=== PATIENT | male | born 1950 | race Two or more races ===

== ENCOUNTER → 2020-02-12 | Outpatient (CLI) | payer MEDICARE ==
[~2020-02-12] MED LIST: LATA2.5D2 LEFTEYE; METF500T16 PO; OXYC-325 PO; SIMV20TA18 PO
[2020-02-12 13:13] LABS: BASO % 0 % (0-3); EOS # 0.3 x10^3/uL (0.0-0.7); EOS % 4 % (0-3); HEMATOCRIT 41.4 % (39.0-53.0); LYMPH # 1.7 x10^3/uL (1.0-4.8); LYMPH % 20 % (24-48); MEAN CORPUSCULAR HEMOGLOBIN 28 pg (25-35); MEAN CORPUSCULAR HGB CONC 34 g/dL (31-37); MEAN CORPUSCULAR VOLUME 84 fL (79-100); MONO % 11 % (0-9); NEUT # 5.5 x10^3/uL (1.8-7.7); NEUT % 65 % (31-73); PLATELET COUNT 309 x10^3/uL (140-400); RED BLOOD COUNT 4.92 x10^6/uL (4.30-5.70); RED CELL DISTRIBUTION WIDTH 13.9 % (11.5-14.5); WHITE BLOOD COUNT 8.4 x10^3/uL (4.0-11.0)
[2020-02-13 01:08] LABS: HEMOGLOBIN A1C 5.7 % (4.8-5.6)
== END ==
LOC: SURGPAT 12:28
PROVIDERS: ATTEND Surgery
DX: Z01.818 Encounter for other preprocedural examination (principal); Z11.59 Encounter for screening for other viral diseases; K40.90 Unilateral inguinal hernia, without obstruction or gangrene, not specified as recurrent
CPT/HCPCS: 36415; 83036; 85025; U0003

== ENCOUNTER 2020-02-16 07:30 | Day surgery (SDC) | payer MEDICARE ==
[~2020-02-16] VITALS: Ht 172.7 cm; Wt 71.0 kg
[~2020-02-16 07:30] MED LIST changes: +ACETAMINOPHEN 500 MG TABLET PO ONE; +HYDROmorphone 2 MG/ML VIAL IV PRN; +IV RINGERS,LACTATED 1000ML 1,000 ML IV SCH; +MORPHINE SULFATE 2 MG/ML VIAL. IV PRN; +ONDANSETRON PF 4 MG/2 ML VIAL. IV PRN; -OXYC-325 PO; +PROCHLORPERAZINE 10 MG/2 ML VIAL. IV PRN; +ceFAZolin SODIUM IV Push 1 GM VIAL. IVP ONE; +fentaNYL PF VIAL 100 MCG/2 ML VIAL IV PRN
[2020-02-16] MEDS ORDERED: INSULIN LISPRO 100 UNIT/ML 3ML VIAL for OP,RR ONLY. SQ PRN (07:45)
[2020-02-16] MEDS ORDERED: LIDOCAINE 2% PF 5 ML VIAL. ONE (08:10)
[2020-02-16] MEDS ORDERED: PROPOFOL 10 MG/ML (20ML) VIAL. IV ONE (08:10)
[2020-02-16] MEDS ORDERED: fentaNYL PF VIAL 250 MCG/5 ML VIAL ONE (08:11)
[2020-02-16] MEDS ORDERED: ROCURONIUM 50 MG/5 ML VIAL. ONE (08:11)
[2020-02-16] MEDS ORDERED: MINERAL OIL for SURGERY 10 ML VIAL. MC ONE (08:28)
[2020-02-16] MEDS ORDERED: BUPIVACAINE-EPI 0.25%-1:200000 MPF 30 ML VIAL. ONE (08:29)
[2020-02-16] MEDS ORDERED: DEXAMETHASONE SOD PHOS 4 MG/ML VIAL ONE (09:06)
[2020-02-16] MEDS ORDERED: ONDANSETRON PF 4 MG/2 ML VIAL. ONE (09:06)
[2020-02-16] MEDS ORDERED: SEVOFLURANE 31 TO 60 MINUTES. IH ONE (09:13)
[2020-02-16] MEDS ORDERED: NEOSTIGMINE METHYLSULFATE 5 MG/5 ML SYRINGE. ONE (09:31)
[2020-02-16] MEDS ORDERED: GLYCOPYRROLATE 1 MG/5 ML VIAL. ONE (09:31)
--- NOTE | 2020-02-16 09:54 | PDOC4 ---
Operative Note Operative Note Date: 2019 at 09 51 Preoperative diagnosis: Left inguinal hernia Postoperative diagnosis: Same Procedure: Robotic assisted laparoscopic left inguinal hernia repair with mesh Surgeon: Lane Specimen: None Dictation: Patient is 69-year-old male whose had a painful bulge in his left groin. Procedure of robotic assisted laparoscopic left inguinal hernia repair with mesh was explained to the patient detail was benefits were also discussed occluding bleeding infection injury to intra-abdominal contents possible necessitating further open operations alternatives to this procedure also discussed with the patient who seemed to understand and gave both verbal and written consent to have the procedure performed. Patient was taken to the operating room placed in the supine position general anesthesia was initiated once patient was sleeping intubated placed in low lithotomy position and his abdomen was prepped and draped usual sterile fashion using ChloraPrep. An area just above the umbilicus injected with quarter percent Marcaine with epinephrine incision was made 11 blade scalpel and a varies needle was placed within the abdomen creating pneumoperitoneum once this complete a millimeter da Luigi port was placed and the camera was placed within the abdomen which was inspected was noted that he had a left inguinal hernia with incarcerated colon within the hernia defect. A 8 mm da Luigi port was placed in the left midabdomen and an 8 mm da Luigi port was placed in the right midabdomen. The da Luigi robot was brought into docked all port sites surgeon went to the robotic console using a grasper and Endo Cierra scissors the hernia on the left side was reduced as well as its contents a incision was made in the peritoneum and a window was propagated inferiorly reducing all the hernia sac out of the hernia defect. A large Bard 3D max mesh for the left groin was placed within the abdomen this was placed over the hernia defect and using a 20V lock suture absorbable was used to close the peritoneum over the mesh. Needle was removed from the abdomen the da Luigi robot was undocked from all port sites the pneumoperitoneum was reduced all ports were removed the skin incisions were all closed with 4 subcuticular Mo nocryl Mastisol Steri-Strips and island dressings were applied. Patient was awakened and extubated the operating room taken to recovery in stable condition all sponge instrument needle counts listed as correct estimated blood loss 5 mL ERIC GAMBOA MD Feb 16, 2020 09:54
--- NOTE | 2020-02-16 09:55 | DISCH ---
DISCHARGE INSTRUCTIONS Condition on Discharge Condition on Discharge: Stable Activity After Discharge Activity Instructions for Disc: Avoid exertion Other activity instructions: No lifting more than 20 pounds for 2 weeks Diet after Discharge Diet after Discharge: Regular Wound Incision Care Other wound/incision instructi: May shower in 24 hours Contacting the after DC Call your doctor for: If your condition worsens Follow-Up Follow up with: Dr. Gamboa in 2 weeks ERIC GAMBOA MD Feb 16, 2020 09:55
[2020-02-16] MEDS ORDERED: oxyCODONE/APAP 5/325 1 TAB TABLET PO ONE ×2 (10:15)
[2020-02-16] MEDS ORDERED: OXYC-325 PO (10:19)
[2020-02-16 10:45] VITALS: BP 154/81
== END 2020-02-16 11:49 | disposition home or self-care (01) ==
LOC: SURG 07:30 → EDUNIT# 10:00 → SURG 11:49
PROVIDERS: ATTEND Surgery
DX: K40.90 Unilateral inguinal hernia, without obstruction or gangrene, not specified as recurrent (principal); E11.9 Type 2 diabetes mellitus without complications; E78.00 Pure hypercholesterolemia, unspecified; Z79.84 Long term (current) use of oral hypoglycemic drugs; Z79.899 Other long term (current) drug therapy
CPT/HCPCS: 49650; 82962; A7015; C1781; J0690; J1100; J2405; J2704; J2710; J3010; J3490

== ENCOUNTER → 2020-07-10 | Outpatient (CLI) | payer MEDICARE ==
[~2020-07-10] MED LIST changes: -ACETAMINOPHEN 500 MG TABLET PO ONE; -HYDROmorphone 2 MG/ML VIAL IV PRN; -IV RINGERS,LACTATED 1000ML 1,000 ML IV SCH; -MORPHINE SULFATE 2 MG/ML VIAL. IV PRN; -ONDANSETRON PF 4 MG/2 ML VIAL. IV PRN; +OXYC-325 PO; -PROCHLORPERAZINE 10 MG/2 ML VIAL. IV PRN; -ceFAZolin SODIUM IV Push 1 GM VIAL. IVP ONE; -fentaNYL PF VIAL 100 MCG/2 ML VIAL IV PRN
--- NOTE | 2020-07-10 14:48 | KCIC ---
MRI of the lumbar spine without contrast 07/10/2020 CLINICAL HISTORY: Low back pain which radiates down the left leg for 6 weeks. TECHNIQUE: Unenhanced T1-weighted and T2-weighted sagittal and axial and inversion recovery sagittal images of the lumbar spine were obtained. FINDINGS: Mild S-shaped curvature of the thoracolumbar spine is seen. Degenerative signal changes are seen involving all the disks of the lumbar spine. Degenerative signal changes are seen within the ma rrow surrounding these discs. The conus medullaris is normal morphology, position, and signal charact eristics. A 1 cm rounded high signal intensity lesion is seen involving the midpole of the left kidne y on the T2-weighted images. This likely represents a cyst. No further imaging evaluation is recommen ded. At the L1-2 disc space there is a minimal generalized disc bulge. Degenerative changes are seen invol ving the facet joints bilaterally. These findings do not result in significant central spinal canal o r neural foraminal stenosis. At the L2-3 disc space there is a mild to moderate generalized disc bulge. This is eccentric to the l eft. Superimposed on this disc bulge is a left lateral focal disc herniation which extrudes slightly inferiorly. This measures 5 mm in AP diameter. Degenerative changes are seen involving the facet join ts bilaterally. There is mild ligamentum flavum hypertrophy bilaterally. These findings when combined do not result in significant central spinal canal stenosis. Mild left neural foraminal stenosis is s een. The right neural foramen is patent. At the L3-4 disc space there is a mild to moderate generalized disc bulge. This is eccentric to the r ight. Degenerative changes are seen involving the facet joints bilaterally. There is mild ligament fl avum hypertrophy bilaterally. These findings when combined do not result in significant central spina l canal or neural foraminal stenosis. At the L4-5 disc space there is a mild generalized disc bulge. Superimposed on this disc bulge is a r ight lateral focal disc protrusion. This measures 3 mm in AP diameter. Degenerative changes are seen involving the facet joints bilaterally. There is mild ligament flavum hypertrophy bilaterally. These findings when combined do not result in significant central spinal canal or neural foraminal stenosis . At the L5-S1 disc space there is a mild to moderate generalized disc bulge. Degenerative changes are seen involving the facet joints bilaterally. These findings do not result in significant central spin al canal or neural foraminal stenosis. IMPRESSION: The changes of degenerative disc disease are seen throughout the lumbar spine. These find ings do not result in significant central spinal canal stenosis at any level. Mild left neural forami nal stenosis is seen at L2-3 secondary to a left lateral focal disc herniation. Electronically signed by: Deven Laird MD (07/10/2020 2:45 PM) [id number]
== END ==
LOC: KCIC MRI 12:51
PROVIDERS: ATTEND Family Medicine
DX: M51.36 Other intervertebral disc degeneration, lumbar region (principal); M48.061 Spinal stenosis, lumbar region without neurogenic claudication; M51.27 Other intervertebral disc displacement, lumbosacral region; M47.817 Spondylosis without myelopathy or radiculopathy, lumbosacral region; M43.8X5 Other specified deforming dorsopathies, thoracolumbar region; M89.38 Hypertrophy of bone, other site
CPT/HCPCS: 72148

== ENCOUNTER → 2020-08-06 | Outpatient (CLI) | payer MEDICARE ==
[~2020-08-06] MED LIST changes: +ATOR40TA59 PO; +cbd oil
--- NOTE | 2020-08-06 15:07 | PDOC1 ---
INITIAL PAIN CONSULT DATE OF SERVICE: DOS: DATE: 08/06/20 TIME: 15:00 CHIEF COMPLAINT: Chief Complaint: Low back and bilateral lower extremity pain HISTORY OF PRESENT ILLNESS: 70-year-old male presents history of pain low back bilateral lower extremities left greater than right for about 5 months. Patient reports no specific injury or accident that he is aware but is getting worse over time in the left greater than right lower extremity mostly in the posterior gluteus posterior lateral thigh lateral anterior thigh anterior medial thigh on the right into the medial lower leg bilaterally much worse on the left than the right. Patient reports constant is throbbing scribes as tingling and change during the day worse with activity standing walking changing positions aching in the low back patient reports is worse with walking and standing changing positions getting up from a seated position also wakes him from sleep occasionally but not every night. Patient has been doing physical therapy which has been helpful as well as doing exercise daily both of these since 1 month ago. Patient taking gabapentin as well as an gmcz-vsn-lbspevy medicine for restless legs neither 1 of which does decrease the pain significantly. Patient rates his disability rating 0-10 10 being the worst is a 6 with him home responsibilities recreation 5 with social activity occupation sexual behavior 6 with self-care and 7 with life support ac tivities. Patient did have MRI scan lumbar spine showing multiple levels of degenerative disc disease with a L2-3 disc bulge and lateral focal disc herniation extruding slightly inferiorly eccentric to the left, L3-4 shows moderate generalized disc bulge eccentric to the right with mild ligament flavum hypertrophy bilaterally L4-5 shows degenerative changes and disc bulges with so perimposed right lateral focal disc protrusion. Patient reports no loss of motor function lower extremities but significant fatigability of the left leg with walking and standing. PAST MEDICAL HISTORY: PMH: Type 2 diabetes, arthritis, glaucoma PREVIOUS SURGERIES: Past Surgical Hx: Left inguinal hernia repair January 2020 CURRENT MEDICATIONS: Current Meds: Active Scripts Medications Dose Route/Sig Max Daily Dose Days Date Category [cbd oil] PRN 08/06/20 Reported Atorvastatin Calcium 40 Mg Tablet 1 Tab PO DAILY 08/06/20 Reported Xalatan (Latanoprost) 2.5 Ml Drops 1 Drop LEFTEYE DAILY 02/12/20 Reported Metformin Hcl 500 Mg Tablet 500 Mg PO DAILY 02/12/20 Reported ALLERGIES; Allergies: Coded Allergies: No Known Drug Allergies (Unverified , 02/16/20) FAMILY HISTORY: Family Hx: Heart disease, diabetes SOCIAL HISTORY: Social Hx: Patient is under alcohol does not smoke or use any illegal illicit recreational drugs is lives with his spouse lives locally in [facility] REVIEW OF SYSTEMS: ROS: Positive for those items mentioned in history of present illness, all systems are reviewed, otherwise negative, is complete full and well-documented on patient's chart. PHYSICAL EXAM: VS: Blood pressure is 132/89 pulse 79 respirations 16 temperature is 98.2 F height is 5 feet 8 inches weight is 153 pounds PE: PHYSICAL EXAMINATION: GENERAL: The patient is awake, alert, oriented, appropriate, very pleasant demeanor HEENT: Shows normocephalic, atraumatic. Extraocular movements are intact and symmetrical. Patient wearing eyeglasses oral cavity: Mucous membranes moist and pink. Dentition is intact. NECK: Shows anterior throat supple without palpable lymphadenopathy noted. Swallow reflex symmetrical. CHEST: Shows normal on inspection. Breath sounds are clear bilaterally, no rales rhonchi wheezes auscultated. HEART: Shows S1, S2 clear. No murmurs auscultated. ABDOMEN: Soft, nontender, nondistended, obese. No palpable organomegaly is not ed. No rebound or guarding demonstrated. BACK: Shows spine grossly in the midline. Normal-appearing cervical lordotic curvature. There is slightly increased thoracic kyphosis, some minor flattening of the lumbar lordotic curvature. Lumbar paraspinous muscles show symmetrical on inspection, on palpation shows some moderate tenderness diffusely throughout the upper, middle and lower distribution of the paraspinous muscles bilaterally and also into the lower thoracic paraspinous musculature, firm and tender, but without specific trigger points, without radiation of pain. The patient has good rotational motion of the lumbar spine, both laterally as well as extension and flexion without significant difficulty. No tenderness over the spinous processes, sacrum or sacroiliac regions. EXTREMITIES: Lower extremities show deep tendon reflexes 2+ in the patellar and tendo calcaneus tendons. Motor exam is 5 on a scale of 5 with right dorsiflexion, extension, quadriceps and hamstring flexion and 4/5 on the left. Peripheral pulses are 1+ posterior tibial. No peripheral edema is noted bilaterally. Lower extremities are warm and dry to touch, equal in color and appearance. Straight leg raise noted to be negative on the right, left side is positive at approximately 35 degrees decreased with knee flexion. Gaenslen's and Craig's maneuvers are negative bilaterally. The patient is able to stand, stand on his toes without significant difficulty or loss of balance, walks with a normal-appearing gait not appear to favor the right or left lower extremity significantly. SKIN: Shows warm and dry, good turgor. No edema. No sores, rashes or bruising throughout. IMPRESSION: Impression: 70-year-old male with 5-month history increasing pain low back left lower extremity greater than right in a radicular fashion Lumbar spine MRI scan as noted Arthritis Type 2 diabetes Plan: Options discussed with the patient cleared except medical management physical therapies and interventional techniques. Patient would like to pursue interventional techniques. We discussed a lumbar epidural steroid injection using description as well as anatomical models to describe the procedure. Risks were discussed including but not limited to: Bleeding, infection, possibility of epidural hematoma and subsequent neurological compromise, dural puncture, headaches, spinal cord and/or nerve damage, side effects of steroid medication, and poor results regarding pain control. Patient understands and wished to proceed. Patient will return to clinic in approximate 2 is for follow-up, was counseled as return appointment activity level and side effects to be aware of. Procedure is lumbar epidural steroid injection under local anesthetic using sterile prep and drape at the L3-4 level using C-arm fluoroscopic guidance in both AP and lateral views medications injected is 120 mg Depo-Medrol + 10 mL preservative-free normal saline and 2 mL contrast- condition at discharge is stable patient tolerated procedure well had no complications. GOLDY KIM MD Aug 06, 2020 15:07
--- NOTE | 2020-08-06 15:08 | PDOC4 ---
PROCEDURE Procedure Patient was consented for lumbar epidural steroid injection. Risks were dis cussed including but not limited to: Bleeding, infection, possibility of epidural hematoma and subsequent neurological compromise, dural puncture, headaches, spinal cord and/or nerve damage, side effects of steroid medication, and poor results regarding pain control. Patient understands and wished to proceed. Procedure is lumbar epidural steroid injection under local anesthetic using sterile prep and drape at the L3-4 level using C-arm fluoroscopic guidance in both AP and lateral views medications injected is 120 mg Depo-Medrol + 10 mL preservative-free normal saline and 2 mL contrast- condition at discharge is stable patient tolerated procedure well and had no complications. GOLDY KIM MD Aug 06, 2020 15:08
== END | disposition home or self-care (01) ==
LOC: PNCL 13:12
PROVIDERS: ATTEND Anesthesiology
DX: M54.5 Low back pain (principal); M79.605 Pain in left leg; M79.604 Pain in right leg; M19.90 Unspecified osteoarthritis, unspecified site; E11.9 Type 2 diabetes mellitus without complications; E78.00 Pure hypercholesterolemia, unspecified; Z87.891 Personal history of nicotine dependence; Z79.899 Other long term (current) drug therapy; Z98.890 Other specified postprocedural states; Z82.49 Family history of ischemic heart disease and other diseases of the circulatory system; Z83.3 Family history of diabetes mellitus
CPT/HCPCS: 62323

== ENCOUNTER → 2020-08-20 | Outpatient (CLI) | payer MEDICARE ==
--- NOTE | 2020-08-20 13:14 | PDOC ---
Progress Note - Pain Clinic Date of Service: DOS: DATE: 08/20/20 TIME: 13:11 Diagnosis: Dx: Lumbar radiculopathy with lumbar degenerative disease and lumbar herniated disc History or Present Illness: HPI: 70-year-old male returns for follow-up status post lumbar epidural steroid action x1. Patient reports about 50% improvement overall still some pain in the low back and left lower extremity but much better than it was patient reports only some tingling in the leg now he has been increasing his activity to greater ease and comfort walking greater distances doing household activities travel with greater ease these as well patient reports he is sleeping better at night generally does not awaken him from sleep. Patient reports about 2 weeks ago however he fell in some ice and hurt his ribs on his left side this is been causing him to lose sleep at night because of the back and the lower extremity. Patient reports otherwise doing much better rates his pain as a 8 on a scale of 10 at its worst 7 at least 7 on average and this is because of his ribs not his low back and leg. Patient scribes the and leg discomfort is tingling now with much less aching. Patient reports no new motor or sensory deficits no new bowel or bladder incontinence or other complaints. Physical Exam: VS: Pressure is 114/78 pulse 84 respirations 20 temperature 98.5 F weight 152 pounds PE: PHYSICAL EXAMINATION: GENERAL: The patient is awake, alert, oriented, appropriate, very pleasant demeanor HEENT: Shows normocephalic, atraumatic. Extraocular movements are intact and symmetrical. NECK: Shows anterior throat supple without palpable lymphadenopathy noted. ABDOMEN: Soft, nontender, nondistended. No palpable organomegaly is noted. No rebound or guarding demonstrated. BACK: Shows spine grossly in the midline. Normal-appearing cervical lordotic curvature. There is slightly increased thoracic kyphosis, some flattening of the lumbar lordotic curvature. Lumbar paraspinous muscles show symmetrical on inspection, on palpation shows some moderate tenderness diffusely throughout the upper, middle and lower distribution of the paraspinous muscles, but without specific trigger points, without radiation of pain. The patient has good rotational motion of the lumbar spine, both laterally as well as extension and flexion without significant difficulty. EXTREMITIES: Lower extremities show deep tendon reflexes 2+ in the patellar and tendo calcaneus tendons. Motor exam is 5 on a scale of 5 with right dorsiflexion, extension, quadriceps and hamstring flexion and 4/5 on the left. Peripheral pulses are 1+ posterior tibial. No peripheral edema is noted bilaterally. Lower extremities are warm and dry to touch, equal in color and appearance. SKIN: Shows warm and dry, good turgor. No edema. No sores, rashes or bruising throughout. Procedure: Procedure: Options were discussed with the patient. Patient will chart reviews his current medication regimen updated current review of systems updated today as well. We will hold on any further injections at this time as patient doing quite a bit better. Patient will increase activity as tolerated maintain stretching strength exercises as well and will have him return on as-needed basis at this time for any additional procedures. Medication Injected: Med Injected: None Condition at Discharge: Condition at Discharge: Condition at discharge is stable. GOLDY KIM MD Aug 20, 2020 13:14
== END | disposition home or self-care (01) ==
LOC: PNCL 11:25
PROVIDERS: ATTEND Anesthesiology
DX: M51.16 Intervertebral disc disorders with radiculopathy, lumbar region (principal); E78.00 Pure hypercholesterolemia, unspecified; E11.9 Type 2 diabetes mellitus without complications; Z79.899 Other long term (current) drug therapy; Z98.890 Other specified postprocedural states; Z87.891 Personal history of nicotine dependence
CPT/HCPCS: G0463

== ENCOUNTER → 2020-09-17 | Outpatient (CLI) | payer MEDICARE ==
[~2020-09-17] MED LIST changes: +IOHEXOL 180 MG/ML 10 ML VIAL. ONE; +methylPREDNISolone ACETATE 40 MG/ML VIAL. ONE; +methylPREDNISolone ACETATE 80 MG/ML VIAL. ONE
--- NOTE | 2020-09-17 12:19 | PDOC ---
Progress Note - Pain Clinic Date of Service: DOS: DATE: 09/17/20 TIME: 12:16 Diagnosis: Dx: Lumbar radiculopathy with lumbar degenerative disease and lumbar herniated disc History or Present Illness: HPI: 70-year-old male returns follow-up status post lumbar epidurals injection x1. Patient reports about 50% improvement for the first month after the injection with pain returning slightly but much less intense in the left lower extremity and low back. Patient reports its radiating to the posterior gluteus lateral thigh anterior thigh anteromedial thigh medial lower leg as well as the groin on the left side patient what is aching and tight some tingling in the leg and some cramping and stabbing the leg as well can be sharp alternate with dull in the back itself. Patient reports is worse with walking standing changing positions generally better with sitting or laying down does not awaken him from sleep at night patient reports he is increasing his distance walking comfortably as well as doing work activities and household activities with greater ease and comfort as well as traveling with greater ease and comfort. She reports no new motor or sensory deficits no new bowel or bladder incontinence or other complaints. Physical Exam: VS: Blood pressure is 120/73 pulse 73 respirations 18 temperature 98.0 F weight is 157 pounds PE: PHYSICAL EXAMINATION: GENERAL: The patient is awake, alert, oriented, appropriate, very pleasant demeanor HEENT: Shows normocephalic, atraumatic. Extraocular movements are intact and symmetrical. Oral cavity: Mucous membranes moist and pink. NECK: Shows anterior throat supple without palpable lymphadenopathy noted. Swallow reflex symmetrical. CHEST: Shows normal on inspection. Breath sounds are clear bilaterally. HEART: Shows S1, S2 clear. No murmurs auscultated. ABDOMEN: Soft, nontender, nondistended, obese. No palpable organomegaly is noted. BACK: Shows spine grossly in the midline. Normal-appearing cervical lordotic curvature. There is slightly increased thoracic kyphosis, some minor flattening of the lumbar lordotic curvature. Lumbar paraspinous muscles show symmetrical on inspection, on palpation shows some moderate tenderness diffusely throughout the upper, middle and lower distribution of the paraspinous muscles, but without specific trigger points, without radiation of pain. The patient has good rotational motion of the lumbar spine, both laterally as well as extension and flexion without significant difficulty. EXTREMITIES: Lower extremities show deep tendon reflexes 2+ in the patellar and tendo calcaneus tendons. Motor exam is 5 on a scale of 5 with right dorsiflexion, extension, quadriceps and hamstring flexion and 4/5 on the left. Peripheral pulses are 1+ posterior tibial. No peripheral edema is noted bilaterally. Lower extremities are warm and dry to touch, equal in color and appearance. SKIN: Shows warm and dry, good turgor. No edema. No sores, rashes or bruising throughout. Procedure: Procedure: Options were discussed with the patient. Patient will chart reviews his current medication regimen updated and current review of systems updated today as well. We will proceed with a second in the series lumbar epidural steroid injection today with fluoroscopic guidance. Risks were discussed including but not limited to: Bleeding, infection, possibility of epidural hematoma and subsequent neurological compromise, dural puncture, headaches, spinal cord and/or nerve damage, side effects of steroid medication, and poor results regarding pain control. Patient understands and wished to proceed. Patient will return to clinic in approximate 2 weeks for follow-up, was counseled as to return appointment activity level and side effects to be aware of. Medication Injected: Med Injected: Procedure is lumbar epidural steroid injection under local anesthetic using sterile prep and drape at the L3-4 level using C-arm fluoroscopic guidance in both AP and lateral views medications injected is 120 mg Depo-Medrol + 10 mL preservative-free normal saline and 2 mL contrast- condition at discharge is stable patient tolerated procedure well had no complications. Condition at Discharge: Condition at Discharge: Condition at discharge is stable, patient tolerated the procedure well and had no complications. GOLDY KIM MD Sep 17, 2020 12:19
--- NOTE | 2020-09-17 12:20 | PDOC4 ---
PROCEDURE Procedure Patient was consented for lumbar epidural steroid injection. Risks were dis cussed including but not limited to: Bleeding, infection, possibility of epidural hematoma and subsequent neurological compromise, dural puncture, headaches, spinal cord and/or nerve damage, side effects of steroid medication, and poor results regarding pain control. Patient understands and wished to proceed. Procedure is lumbar epidural steroid injection under local anesthetic using sterile prep and drape at the L3-4 level using C-arm fluoroscopic guidance in both AP and lateral views medications injected is 120 mg Depo-Medrol + 10 mL preservative-free normal saline and 2 mL contrast- condition at discharge is stable patient tolerated procedure well had no complications. GOLDY KIM MD Sep 17, 2020 12:20
== END | disposition home or self-care (01) ==
LOC: PNCL 11:38
PROVIDERS: ATTEND Anesthesiology
DX: M51.16 Intervertebral disc disorders with radiculopathy, lumbar region (principal); E78.00 Pure hypercholesterolemia, unspecified; E11.9 Type 2 diabetes mellitus without complications; Z87.891 Personal history of nicotine dependence; Z79.899 Other long term (current) drug therapy; Z98.890 Other specified postprocedural states
CPT/HCPCS: 62323; J1030; J1040; Q9965

== ENCOUNTER → 2020-11-01 | Outpatient (CLI) | payer MEDICARE ==
[~2020-11-01] MED LIST changes: -IOHEXOL 180 MG/ML 10 ML VIAL. ONE; -methylPREDNISolone ACETATE 40 MG/ML VIAL. ONE; -methylPREDNISolone ACETATE 80 MG/ML VIAL. ONE
--- NOTE | 2020-11-01 16:51 | RAD ---
EXAM: Left renal sonogram. HISTORY: Pain status post inguinal hernia repair. TECHNIQUE: Sonographic imaging of the inguinal region was performed. COMPARISON: None. FINDINGS: There is a suspected small fat-containing inguinal hernia defect measuring 2.1 cm. This may be superimposed on mesh related to prior hernia repair. There is a prominent lymph node or 2 adjacen t lymph nodes with benign fatty hilum and thin cortices within the right inguinal region measuring 2. 7 cm in conglomerate. No hematoma is seen. IMPRESSION: 1. Suspected small fat-containing inguinal hernias status post internal hernia repair. Correlate with physical exam findings. 2. Benign-appearing inguinal lymph nodes. Electronically signed by: Kelly Cameron MD (11/01/2020 4:48 PM) [facility]
== END ==
LOC: US 16:10
PROVIDERS: ATTEND Surgery
DX: K40.90 Unilateral inguinal hernia, without obstruction or gangrene, not specified as recurrent (principal)
CPT/HCPCS: 76881